=== PATIENT | male | born 1945 | race Caucasian/White ===

== ENCOUNTER 2016-10-23 07:43 | Observation (INO) | payer OTHER ==
[~2016-10-23] VITALS: Ht 172.7 cm; Wt 70.8 kg
[~2016-10-23 07:43] MED LIST: FLOMAX0.4 M1 PO; MOTRIN800 MG PO; PROMETHAZINE HC25 M1 PO; VICODIN,LORT1 TABLET PO
[2016-10-23 08:40] LABS: EOSINOPHIL (%) 0.8 % (0-5); EOSINOPHIL COUNT 0.1 K/uL (0-0.3); HEMATOCRIT 50.4 % (38.0-50.0); IMMATURE GRANULOCYTE (%) 0.3 % (0.0-0.7); INSTRUMENT ABS NEUTROPHIL CT 6.7 K/uL; LYMPHOCYTE COUNT 1.4 K/uL (1.0-2.8); MCH 29.4 PG (29.0-34.0); MCHC 32.9 G/DL (30.0-36.0); MCV 89.4 FL (86-99); MEAN PLAT.VOLUME 9.7 uM^3 (9.0-12.4); MONOCYTE (%) 7.8 % (3-12); MONOCYTE COUNT 0.7 K/uL (0-0.8); NEUTROPHIL (%) 74.8 % (45-76); NEUTROPHIL COUNT 6.7 K/uL (1.8-6.4); PLATELET COUNT 257 K/uL (156-360); RBC DIS.WIDTH-CV 12.8 % (11.8-14.6); RBC DIS.WIDTH-SD 41.9 % (39-53); RED BLOOD COUNT 5.64 M/uL (4.00-5.50)
[2016-10-23 08:49] LABS: CHLORIDE 106 mEq/L (99-109); POTASSIUM 4.2 mEq/L (3.7-5.4); SODIUM 142 mEq/L (136-147)
[2016-10-23 08:51] LABS: GLUCOSE 130 mg/dL (70-99)
[2016-10-23 08:53] LABS: ANION GAP 10 MEQ/L (2-14)
[2016-10-23 08:55] LABS: GFR ESTIMATE (CALCULATED) > 59 mL/min/
[2016-10-23 08:56] LABS: UREA NITROGEN (BUN) 17 mg/dL (9-23)
[2016-10-23] MEDS ORDERED: ADULT LOW DOSE81 M1 PO (11:33)
[2016-10-23] MEDS ORDERED: VAPOR INHALER50 MG BOTH NARES (11:35)
[2016-10-23 13:00] LABS: TROP-I INTERPRETATION NEGATIVE; TROPONIN-I < 0.01 ng/mL (0.0-0.30)
[2016-10-23 13:10] LABS: HDL CHOLESTEROL 38 MG/DL (Desirable>=40); LDL CHOLESTEROL 132 mg/dL (Desirable<100); NON-HDL CHOLESTEROL 148 mg/dL (Desirable<160); TOTAL CHOLESTEROL 186 mg/dL (Desirable<200); TRIGLYCERIDES 78 MG/DL (Normal: <150)
[2016-10-23 13:52] LABS: Estimated Average Glucose 120 mg/dL (70-123); HEMOGLOBIN A1c (GLYCOHEMOGLOB) 5.8 % HGB (Below 5.7)
[2016-10-23 15:34] VITALS: BP 146/87
[2016-10-23 19:00] VITALS: BP 172/100
[2016-10-23 19:34] LABS: TROP-I INTERPRETATION NEGATIVE; TROPONIN-I 0.02 ng/mL (0.0-0.30)
[2016-10-24] VITALS: BP 155/75
[2016-10-24 04:00] VITALS: BP 156/85
[2016-10-24 07:19] VITALS: BP 139/80
[2016-10-24] MEDS ORDERED: ANTIVERT12.5 MG PO (09:19)
[2016-10-24 11:45] VITALS: BP 134/65
[2016-10-24 11:54] LABS: ADD MIUA? NO; BILIRUBIN NEGATIVE; BLOOD NEGATIVE; COLOR YELLOW ((YELLOW)); GLUCOSE (STRIP) NEGATIVE; KETONES NEGATIVE; LEUKOCYTES NEGATIVE; NITRITE NEGATIVE; PROTEIN (STRIP) NEGATIVE; SPECIFIC GRAVITY 1.008 (1.000-1.030); UCUL ADDED? NO; UROBILINOGEN 0.2 MG/DL (0.2-1.0)
[2016-10-24 14:04] LABS: INFLUENZA A VIRAL ANTIGEN NEGATIVE; INFLUENZA B VIRAL ANTIGEN NEGATIVE
== END 2016-10-24 15:00 | disposition home or self-care (01) ==
LOC: EME → EDBD 07:43 → EME 07:43 → 5WEST 11:19 → EDOF 11:19 → 5WEST 15:25
PROVIDERS: Emergency Medicine; Hospitalist; Internal Medicine
DX: R42 Dizziness and giddiness (principal); H81.10 Benign paroxysmal vertigo, unspecified ear; I44.7 Left bundle-branch block, unspecified; F17.220 Nicotine dependence, chewing tobacco, uncomplicated
CPT/HCPCS: 70450; 70551; 80048; 80061; 81003; 83036; 83880; 84484; 85025; 87502; 93005; 93306; 93880; 99281; 99285; G0378; J1650; J2060; J2405; J2765; J7030